=== PATIENT | male | born 1990 | race Caucasian/White ===

== ENCOUNTER 2017-11-17 15:42 | Emergency (ER) | payer SELFPAY ==
[~2017-11-17] VITALS: Ht 170.2 cm; Wt 70.0 kg
[2017-11-17] MEDS ORDERED: LORAZEPAM 2MG/ML CPJ IM ONE (16:15)
[2017-11-17] MEDS ORDERED: FOLIC ACID 1 MG, THIAMINE HCL 100 MG, MVI, ADULT NO.1 10 ML in DEXTROSE 5% WATER 1,000 ML IV ONE ×4 (16:15)
[2017-11-17 21:38] VITALS: BP 116/73
== END 2017-11-17 21:41 | disposition home or self-care (01) ==
LOC: ER 15:51
DX: T51.0X1A Toxic effect of ethanol, accidental (unintentional), initial encounter (principal); G92 Toxic encephalopathy; Y92.89 Other specified places as the place of occurrence of the external cause
CPT/HCPCS: 36415; 82962; 96365; 96366; 96372; 99285; G0482; J2060; J3411; J3490; J7070; Z7610

== ENCOUNTER 2018-04-19 08:54 | Emergency (ER) | payer OTHER, SELFPAY ==
[~2018-04-19] VITALS: Ht 170.2 cm; Wt 70.0 kg
[2018-04-19] MEDS ORDERED: BACITRACIN ZINC OINT UDPKT TOP ONE (09:45)
[2018-04-19 10:15] LABS: BASOPHILS % 0.4 % (0.0-2.0); EOSINOPHILS % 0.8 % (0.0-5.0); HEMATOCRIT. 42.6 % (42.0-52.0); HEMOGLOBIN. 14.2 g/dL (14.0-18.0); LYMPHOCYTES % 13.5 % (20.0-50.0); MEAN PLATELET VOLUME 8.5 fl (7.4-10.4); MONOCYTES % 9.2 % (2.0-8.0); NEUTROPHILS % 76.1 % (40.0-76.0); PLATELET 242 x1000/uL (130-400); RED BLOOD CELL COUNT 4.74 mill/uL (4.7-6.1); RED CELL DISTRIBUTION WIDTH 14.6 % (11.6-14.6)
[2018-04-19 10:19] LABS: CHLORIDE 104 mEq/L (98-107)
[2018-04-19 10:23] LABS: ETHANOL BLOOD < 10 mg/dL
[2018-04-19 10:32] LABS: CARBAMAZEPINE < 0.5 ug/mL (4-12); PHENOBARBITAL < 2.1 ug/mL (15.0-40.0)
[2018-04-19] MEDS ORDERED: LEVETIRACETAM 500MG PREMIX 100 ML IV ONE (11:30)
[2018-04-19 12:05] LABS: CLARITY URINE CLOUDY (CLEAR); COLOR URINE YELLOW (YELLOW); KETONES URINE NEGATIVE (NEGATIVE); LEUKOCYTE ESTERASE URINE NEGATIVE (NEGATIVE); NITRITE URINE NEGATIVE (NEGATIVE); OCCULT BLOOD URINE NEGATIVE (NEGATIVE); PH URINE 6.5 (4.5-8.0); PROTEIN URINE 1+ (NEGATIVE); SPECIFIC GRAVITY URINE 1.017 (1.005-1.030); UROBILINOGEN URINE 0.2 E.U./dL (0.2-1.0)
[2018-04-19 12:23] LABS: *BENZODIAZEPINES SCREEN URINE NEGATIVE (NEGATIVE); *COCAINE SCREEN URINE NEGATIVE (NEGATIVE); METHADONE URINE SCREEN NEGATIVE (NEGATIVE); OPIATES URINE SCREEN NEGATIVE (NEGATIVE)
[2018-04-19 12:24] LABS: *AMPHETAMINES SCREEN URINE NEGATIVE (NEGATIVE); *BARBITURATES SCREEN URINE NEGATIVE (NEGATIVE); CANNABINOID URINE SCREEN NEGATIVE (NEGATIVE); PHENCYCLIDINE URINE SCREEN NEGATIVE (NEGATIVE)
[2018-04-19 12:43] VITALS: BP 119/73
== END 2018-04-19 12:46 | disposition home or self-care (01) ==
LOC: ER 08:54
DX: G40.909 Epilepsy, unspecified, not intractable, without status epilepticus (principal); S00.81XA Abrasion of other part of head, initial encounter; Z87.820 Personal history of traumatic brain injury; W01.0XXA Fall on same level from slipping, tripping and stumbling without subsequent striking against object, initial encounter; Y93.89 Activity, other specified; Y92.488 Other paved roadways as the place of occurrence of the external cause
CPT/HCPCS: 36415; 73130; 80053; 80156; 80165; 80184; 80185; 80305; 81003; 85025; 87186; 93005; 96365; 99284; J1953; Z7610

== ENCOUNTER 2018-06-01 15:19 | Emergency (ER) | payer OTHER, SELFPAY ==
[~2018-06-01] VITALS: Ht 157.5 cm; Wt 65.0 kg
[2018-06-01 15:20] VITALS: BP 126/85
== END 2018-06-01 16:52 | disposition left against medical advice (07) ==
LOC: ER 15:19
DX: F10.120 Alcohol abuse with intoxication, uncomplicated (principal); Z53.21 Procedure and treatment not carried out due to patient leaving prior to being seen by health care provider; Y90.9 Presence of alcohol in blood, level not specified